=== PATIENT | male | born 1990 | race African-American/Black ===

== ENCOUNTER 2016-12-19 19:39 | Emergency (ER) | payer BC, OTHER ==
[~2016-12-19] VITALS: Ht 172.7 cm; Wt 105.2 kg
[~2016-12-19 19:39] MED LIST: CIPR500T94 PO
[2016-12-19 20:12] VITALS: BP 134/71
[2016-12-19] MEDS ORDERED: CYCL10TA2 PO (20:22)
--- NOTE | 2016-12-19 20:22 | PHYS DOC ---
Past Medical History Past Medical History: Other Additional Past Medical Histor: PTSD Past Surgical History: No Surgical History Alcohol Use: Rarely Drug Use: Marijuana Adult General Chief Complaint Chief Complaint: BACK PAIN - NO INJURY [facility] HPI Patient is a 26 year old nail presents emergency department stating that he's been having upper back to neck pain and discomfort since Monday morning. He denies any injury or trauma. 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 He states that he was fine night and when he woke up Monday he was having back pain and discomfort. Patient states that he has tried Aleve ibuprofen, BenGay, icy hot with no relief. Patient denies any numbness or tingling down to his lower extremities. Review of Systems Review of Systems Constitutional: Denies fever or chills [] Eyes: Denies change in visual acuity, redness, or eye pain [] HENT: Denies nasal congestion or sore throat [] Respiratory: Denies cough or shortness of breath [] Cardiovascular: No additional information not addressed in HPI [] GI: Denies abdominal pain, nausea, vomiting, bloody stools or diarrhea [] : Denies dysuria or hematuria [] Musculoskeletal: back pain denies joint pain [] Integument: Denies rash or skin lesions [] Neurologic: Denies headache, focal weakness or sensory changes [] Endocrine: Denies polyuria or polydipsia [] Allergies Allergies Allergies Coded Allergies Type Severity Reaction Last Updated Verified No Known Drug Allergies 03/05/16 No Physical Exam Physical Exam Constitutional: Well developed, well nourished, no acute distress, non-toxic appearance. [] HENT: Normocephalic, atraumatic, bilateral external ears normal, oropharynx moist, no oral exudates, nose normal. [] Eyes: PERRLA, EOMI, conjunctiva normal, no discharge. [] Neck: Normal range of motion, no tenderness, supple, no stridor. [] Cardiovascular:Heart rate regular rhythm, no murmur [] Lungs & Thorax: Bilateral breath sounds clear to auscultation [] Skin: Warm, dry, no erythema, no rash. [] Back: No thoracic spine tenderness, no crepitus no deformities no step-offs noted. Patient did have tenderness on the paraspinal areas. Extremities: No tenderness, no cyanosis, no clubbing, ROM intact, no edema. [] Neurologic: Alert and oriented X 3, normal motor function, normal sensory function, no focal deficits noted. [] Psychologic: Affect normal, judgement normal, mood normal. [] Current Patient Data Vital Signs Vital Signs Date Time Temp Pulse Resp B/P (MAP) Pulse Ox O2 Delivery O2 Flow Rate FiO2 12/19/16 20:12 98.2 73 18 99 Room Air 98.2 EKG EKG [] Radiology/Procedures Radiology/Procedures [] Course & Med Decision Making Course & Med Decision Making Pertinent Labs and Imaging studies reviewed. (See chart for details) Patient will be provided with discharge instructions, treatment regimens and follow-up recommendations for back strain and discomfort. Patient will be provided with Flexeril which she was provided information will cause drowsiness do not take if he needs to be alert and oriented. He'll be provided with a work note off for the 3 days. Patient was also encouraged to use ibuprofen 800 mg every 8 hours to help with inflammation. Patient will be discharged home in stable condition signs and symptoms to return back to emergency department as been provided. [] Dragon Disclaimer Dragon Disclaimer This electronic medical record was generated, in whole or in part, using a voice recognition dictation system. Departure Departure Impression: Primary Impression: Back strain Disposition: 01 HOME, SELF-CARE Condition: STABLE Referrals: NO PCP (PCP) Patient Instructions: Back Pain, Adult, [id number] Additional Instructions: Activity as tolerated. Medications as prescribed. Flexeril will cause drowsiness do not take if you need to be alert and oriented. Ibuprofen 800 mg every 8 hours with food stop taking few develop an upset stomach. Ice packs on 20 minutes off 20 minutes several times today. Follow-up through primary care physician in the next 7-10 days. Return back to emergency prior signs and symptoms of become worse. Scripts Cyclobenzaprine Hcl (CYCLOBENZAPRINE HCL) 10 Mg Tablet 10 MG PO TID, #30 TAB Prov: OZZY ANNE APRN 12/19/16 OZZY ANNE APRN Dec 19, 2016 20:22
== END 2016-12-19 20:30 | disposition home or self-care (01) ==
LOC: ER 19:39
DX: S29.012A Strain of muscle and tendon of back wall of thorax, initial encounter (principal); M54.2 Cervicalgia; F43.10 Post-traumatic stress disorder, unspecified; F12.10 Cannabis abuse, uncomplicated; X58.XXXA Exposure to other specified factors, initial encounter; Y93.89 Activity, other specified; Y99.8 Other external cause status; Y92.89 Other specified places as the place of occurrence of the external cause
CPT/HCPCS: 99283

== ENCOUNTER 2017-07-05 16:38 | Emergency (ER) | payer SELFPAY | END 2017-07-05 17:35 | disposition home or self-care (01) | LOC: ER 16:38 | DX: K08.89 Other specified disorders of teeth and supporting structures (principal); F43.10 Post-traumatic stress disorder, unspecified; F12.10 Cannabis abuse, uncomplicated | CPT/HCPCS: 99283 ==

== ENCOUNTER 2018-10-01 19:53 | Emergency (ER) | payer SELFPAY ==
[~2018-10-01] VITALS: Ht 172.7 cm; Wt 122.5 kg
[~2018-10-01 19:53] MED LIST changes: +AMOX500C PO; +CYCL10TA2 PO; +HYDR-3164 PO
[2018-10-01 20:14] VITALS: BP 157/73
[2018-10-01] MEDS ORDERED: DICL75TA PO (20:44)
[2018-10-01] MEDS ORDERED: METH-37 PO (20:44)
--- NOTE | 2018-10-01 20:44 | PHYS DOC ---
Past Medical History Past Medical History: Other Additional Past Medical Histor: PTSD Past Surgical History: No Surgical History Alcohol Use: Rarely Drug Use: Marijuana Adult General Chief Complaint Chief Complaint: BACK PAIN OR INJURY HPI HPI Patient is a 28 year old M who was pushing a car on Monday and "pulled or tore" something in his lower R back. Pt is ambulatory in to ER with his significant other. He denies bowel or bladder dysfunction or saddle anesthesia. He reports prior "strained back" before but no known significant back problems. Review of Systems Review of Systems Constitutional: Denies fever or chills Respiratory: Denies cough or shortness of breath Cardiovascular: Denies chest pain. GI: Denies abdominal pain, nausea, vomiting, bloody stools or diarrhea : Denies dysuria or hematuria Musculoskeletal: Denies joint pain. Reports back. Integument: Denies rash or skin lesions Neurologic: Denies headache, focal weakness or sensory changes Endocrine: Denies polyuria or polydipsia All other systems were reviewed and found to be within normal limits, except as documented in this note. Current Medications Current Medications Current Medications Medications (Trade) Dose Ordered Sig/Hilda Start Time Stop Time Status Last Admin Dose Admin Dexamethasone Sodium Phosphate (Decadron) 10 mg 1X ONCE 10/01/18 20:45 10/01/18 20:46 DC 10/01/18 20:47 10 MG Ketorolac Tromethamine (Toradol Im) 60 mg 1X ONCE 10/01/18 20:45 10/01/18 20:46 DC 10/01/18 20:47 60 MG Allergies Allergies Allergies Coded Allergies Type Severity Reaction Last Updated Verified No Known Drug Allergies 03/05/16 No Physical Exam Physical Exam Constitutional: Well developed, well nourished, no acute distress, non-toxic appearance. Neck: Normal range of motion, no tenderness, supple, no stridor. Cardiovascular:Heart rate regular rhythm, no murmur Lungs & Thorax: Bilateral breath sounds clear to auscultation Abdomen: Bowel sounds normal, soft, no tenderness, no masses, no pulsatile masses. Skin: Warm, dry, no erythema, no rash. Back: Perispinous tenderness on R side. Pt has no vertebral point tenderness. He has full ROM with tenderness and no signs of cauda equina. Extremities: No tenderness, no cyanosis, no clubbing, ROM intact, no edema. Neurologic: Alert and oriented X 3, normal motor function, normal sensory function, no focal deficits noted. Psychologic: Affect normal, judgement normal, mood normal. Current Patient Data Vital Signs Vital Signs Date Time Temp Pulse Resp B/P (MAP) Pulse Ox O2 Delivery O2 Flow Rate FiO2 10/01/18 20:14 97.7 102 20 157/73 (101) 97 Room Air 97.7 EKG EKG [] Radiology/Procedures Radiology/Procedures [] Course & Med Decision Making Course & Med Decision Making Pertinent Labs and Imaging studies reviewed. (See chart for details) Discussed that plain film imaging could be done but with no midline pain, susp ect that this is more of a muscular injury. Pt in agreement. Discussed that if symptoms do not improve, he may need imaging such as MRI and he should f/u with his PCP for recheck. Dragon Disclaimer Dragon Disclaimer This electronic medical record was generated, in whole or in part, using a voice recognition dictation system. Departure Departure Impression: Primary Impression: Back strain Additional Impression: Sciatica Disposition: 01 HOME, SELF-CARE Condition: IMPROVED Referrals: KIMMY JEFFERY MD (PCP) Patient Instructions: Back Pain, Adult, Sciatica, [id number] Additional Instructions: Heating pad recommended to low back, if pain persists, you may require imaging. Follow up with your doctor or with orthopedics for further care. Scripts Diclofenac Sodium (DICLOFENAC SODIUM) 75 Mg Tablet. 1 TAB PO BID PRN for PAIN, #20 TAB 1 Refill Prov: JOHN SWENSON 10/01/18 Methocarbamol (ROBAXIN) 500 Mg Tablet 1 TAB PO BID PRN for MUSCLE PAIN, #20 TAB Prov: JOHN SWENSON 10/01/18 Problem Qualifiers JOHN SWENSON October 01, 2018 20:44
[2018-10-01] MEDS ORDERED: KETOROLAC 60 MG/2 ML VIAL. IM ONE (20:45)
[2018-10-01] MEDS ORDERED: DEXAMETHASONE SOD PHOS 20 MG/5 ML VIAL. IM ONE (20:45)
== END 2018-10-01 21:12 | disposition home or self-care (01) ==
LOC: ER 19:53
DX: S39.012A Strain of muscle, fascia and tendon of lower back, initial encounter (principal); M54.41 Lumbago with sciatica, right side; X50.9XXA Other and unspecified overexertion or strenuous movements or postures, initial encounter; Y93.89 Activity, other specified; Y92.89 Other specified places as the place of occurrence of the external cause; Y99.8 Other external cause status
CPT/HCPCS: 96372; 99284; J1100; J1885

== ENCOUNTER 2018-11-17 05:35 | Emergency (ER) | payer SELFPAY ==
[~2018-11-17] VITALS: Ht 172.7 cm; Wt 115.7 kg
[~2018-11-17 05:35] MED LIST changes: +DICL75TA PO; +METH-37 PO
--- NOTE | 2018-11-17 06:13 | PHYS DOC ---
Past Medical History Past Medical History: Other Additional Past Medical Histor: PTSD Past Surgical History: No Surgical History Additional Information: Nonsmoker Alcohol Use: Rarely Drug Use: Marijuana Adult General Chief Complaint Chief Complaint: KNEE INJURY HPI HPI Patient is a 28-year-old male who presents with right knee pain. Yesterday he has played basketball when his right knee twisted and reportedly "popped". Ever since the injury he has had constant, sharp pain on the medial and lateral aspect of his right knee that shoots down the back of his calf. He has used ibuprofen and ice and elevation that this helped with some pain. He rates the pain as a 9/10 currently. Reports some swelling. Denies other injury. Denies numbness or tingling. Review of Systems Review of Systems Constitutional: Denies fever or chills Eyes: Denies redness or eye pain HENT: Denies nasal congestion or sore throat Respiratory: Denies cough or shortness of breath Cardiovascular: Denies chest pain or palpitations GI: Denies abdominal pain, nausea, or vomiting : Denies dysuria or hematuria Musculoskeletal: Denies back pain, reports right knee joint pain Integument: Denies rash or skin lesions Neurologic: Denies headache, focal weakness or sensory changes Complete systems were reviewed and found to be within normal limits, except as documented in this note. Current Medications Current Medications Current Medications Medications (Trade) Dose Ordered Sig/Hilda Start Time Stop Time Status Last Admin Dose Admin Ketorolac Tromethamine (Toradol 30mg Vial) 30 mg 1X ONCE 11/17/18 06:30 11/17/18 06:31 DC 11/17/18 06:36 30 MG Allergies Allergies Allergies Coded Allergies Type Severity Reaction Last Updated Verified No Known Drug Allergies 03/05/16 No Physical Exam Physical Exam Constitutional: Well developed, well nourished, no acute distress, non-toxic appearance HENT: Normocephalic, atraumatic, oropharynx moist Eyes: Conjunctiva normal, no discharge Neck: Normal range of motion, no tenderness, supple Cardiovascular: CR < 2 sec, PT to right ankle +2 Lungs & Thorax: No respiratory distress, no trauma Skin: Warm, dry, no erythema, no rash Extremities: No deformity, reduced flexion in right knee, mild edema below right patella. No patellar laxity or pain, joint is stable, negative ante rior/posterior drawer test, mild pain to valgus and varus strain but no laxity, negative Marija's test. Neurologic: Alert and oriented X 3, normal motor function, normal sensory function, no focal deficits noted Psychologic: Affect normal, judgement normal, mood normal Current Patient Data Vital Signs Vital Signs Date Time Temp Pulse Resp B/P (MAP) Pulse Ox O2 Delivery O2 Flow Rate FiO2 11/17/18 08:18 88 16 130/84 (99) 98 Room Air 11/17/18 05:37 98.0 98.0 EKG EKG [] Radiology/Procedures Radiology/Procedures PROCEDURE: KNEE RIGHT 3V KNEE RIGHT 3V History: Right knee pain began while playing basketball Comparison: None. Findings: 3 views of the right knee are submitted. No acute fracture or dislocation is identified. There is probable small suprapatellar joint effusion. Impression: 1. No acute osseous abnormality is identified by radiographs. There is probable small suprapatellar joint effusion. Electronically signed by: Jordi Monreal MD (11/17/2018 7:40 AM) [facility] Course & Med Decision Making Course & Med Decision Making Pertinent Imaging studies reviewed. (See chart for details) Mr. Lora is a 28-year-old male who presents with acute onset of right knee pain. 2 days ago he was playing basketball when his right knee medial and he felt a popping sensation. He has had sharp, constant pain on the medial and lat eral aspect of his right knee that shoots down the back of his calf. His tried a wrap, elevation, ibuprofen, and ice with only mild improvement. On physical exam the joint is stable with reduced flexion. X-ray is obtained to check for acute process. Crutches and leatha bandage provided. Patient stable for discharge with outpatient follow-up with PCP/orthopedics. Orthopedic referral provided. Discussed findings and plan with patient and family, who acknowledge understanding and agreement. Dragon Disclaimer Dragon Disclaimer This electronic medical record was generated, in whole or in part, using a voice recognition dictation system. Splinting Splinting : Location: Right knee Pre-Made Type: LEATHA bandage Pre-Proc Neuro Vasc Exam: normal Post-Proc Neuro Vasc Exam: normal, unchanged from pre-exam Departure Departure Impression: Primary Impression: Knee pain Disposition: 01 HOME, SELF-CARE Condition: STABLE Referrals: KIMMY JEFFERY MD (PCP) IRISH MENON II, MD Patient Instructions: Crutch Use, [id number], Knee Pain, [id number] Additional Instructions: Take over the counter ibuprofen or naproxen for pain or discomfort. Problem Qualifiers Primary Impression: Knee pain Chronicity: acute Laterality: right Qualified Codes: M25.561 - Pain in right knee KIMMY ARNETT DO Nov 17, 2018 06:13
[2018-11-17] MEDS ORDERED: KETOROLAC 30 MG/ML VIAL. IM ONE (06:30)
--- NOTE | 2018-11-17 07:43 | RAD ---
KNEE RIGHT 3V History: Right knee pain began while playing basketball Comparison: None. Findings: 3 views of the right knee are submitted. No acute fracture or dislocation is identified. There is probable small suprapatellar joint effusion. Impression: 1. No acute osseous abnormality is identified by radiographs. There is probable small suprapatellar joint effusion. Electronically signed by: Jordi Monreal MD (11/17/2018 7:40 AM) [facility]
[2018-11-17 08:18] VITALS: BP 130/84
== END 2018-11-17 08:29 | disposition home or self-care (01) ==
LOC: ER 05:35
DX: M25.561 Pain in right knee (principal)
CPT/HCPCS: 73562; 96372; 99284; J1885

== ENCOUNTER 2019-02-08 14:37 | Emergency (ER) | payer OTHER ==
[~2019-02-08] VITALS: Ht 172.7 cm; Wt 113.4 kg
[2019-02-08 14:40] VITALS: BP 156/92
[2019-02-08] MEDS ORDERED: HYDR-3164 PO (15:31)
[2019-02-08] MEDS ORDERED: METH4TAB2 PO (15:31)
[2019-02-08] MEDS ORDERED: DICL50TA2 PO (15:31)
--- NOTE | 2019-02-08 15:31 | PHYS DOC ---
Past Medical History Past Medical History: No Pertinent History, Other Additional Past Medical Histor: PTSD Past Surgical History: No Surgical History Alcohol Use: Rarely Drug Use: Marijuana Adult General Chief Complaint Chief Complaint: PAIN CONTROL HPI HPI Patient is a 28 year old male with no significant medical history who presents to the ED today complaining of a sharp intermittent 8 out of 10 right knee pain specifically in the posterior and lateral aspect that has been going on since November 15, 2018 after an injury. Patient states he was seen in the ED that day, he states he had negative x-rays and was discharged to follow-up with an orthopedic doctor. He states he has an appointment on February 21, 2019. Patient states the pain has increasingly gotten worse today, he states he works for the [employer] and ambulation made the pain worse. He is requesting something for pain. Denies anything specifically alleviating the pain. He states his been trying [id number] remedies but today they are not touching the pain. Review of Systems Review of Systems Constitutional: Denies fever or chills [] Musculoskeletal: Reports right knee pain Integument: Denies rash or skin lesions [] Neurologic: Denies headache, focal weakness or sensory changes [] All other systems were reviewed and found to be within normal limits, except as documented in this note. Allergies Allergies Allergies Coded Allergies Type Severity Reaction Last Updated Verified No Known Drug Allergies 03/05/16 No Physical Exam Physical Exam Constitutional: Well developed, well nourished, no acute distress, non-toxic appearance. [] Skin: Warm, dry, no erythema, no rash. [] Back: No tenderness, no CVA tenderness. [] Extremities: Right knee with no obvious deformity, small amount of soft tissue swelling noted over the anterior aspect of the knee. Full range of motion to the right knee. Negative Mahi sign, negative Daron sign, negative anterior- posterior drawer sign. +2 right pedal pulse. Cap refill less than 2 seconds to the right lower extremity, sensation intact. Neurologic: Alert and oriented X 3, normal motor function, normal sensory function, no focal deficits noted. [] Psychologic: Affect normal, judgement normal, mood normal. [] Current Patient Data Vital Signs Vital Signs Date Time Temp Pulse Resp B/P (MAP) Pulse Ox O2 Delivery O2 Flow Rate FiO2 02/08/19 14:40 98.5 83 16 156/92 (113) 98 Room Air 98.5 EKG EKG [] Radiology/Procedures Radiology/Procedures [] Course & Med Decision Making Course & Med Decision Making Pertinent Labs and Imaging studies reviewed. (See chart for details) This is a 28-year-old male patient presented to the ED today with exacerbation of right knee pain, no known injury. Patient also needing a note for work. Has an appointment with Ortho on February 25, 2019. Patient was provided with a note for work and pain medication to use until then. Ice elevation encouraged. Dragon Disclaimer Dragon Disclaimer This electronic medical record was generated, in whole or in part, using a voice recognition dictation system. Departure Departure Impression: Primary Impression: Right knee pain Disposition: HOME, SELF-CARE Condition: STABLE Referrals: NO PCP (PCP) follow up as scheduled Patient Instructions: Knee Pain, [id number] Additional Instructions: Take the prescribed medications as ordered. Try to ice and elevate the extremity. If you have a knee brace all an Salvador bandage use it on the knee. Follow-up with orthopedic doctor as scheduled. Scripts Diclofenac Potassium (DICLOFENAC POTASSIUM) 50 Mg Tablet 1 TAB PO BID, #20 TAB 1 Refill Prov: BONGYAN OQUENDO AUDRA 02/08/19 Hydrocodone/Apap 5-325 (NORCO 5-325 TABLET) 1 Each Tablet 1 TAB PO Q6HRS, #12 TAB Prov: YAN MILLER APRN 02/08/19 Methylprednisolone (MEDROL) 4 Mg Tab.ds.pk 1 PKG PO UD, #1 PKG Prov: BONGJUANITAYAN Ly APRN 02/08/19 Problem Qualifiers Primary Impression: Right knee pain Chronicity: acute Qualified Codes: M25.561 - Pain in right knee YAN MILLER AUDRA Feb 08, 2019 15:31
== END 2019-02-08 15:34 | disposition home or self-care (01) ==
LOC: ER 14:37
DX: M25.561 Pain in right knee (principal)
CPT/HCPCS: 99283

== ENCOUNTER 2019-02-23 11:06 | Emergency (ER) | payer OTHER ==
[~2019-02-23] VITALS: Ht 172.7 cm; Wt 113.4 kg
[~2019-02-23 11:06] MED LIST changes: +DICL50TA2 PO; +METH4TAB2 PO
[2019-02-23 11:15] VITALS: BP 170/75
[2019-02-23] MEDS ORDERED: METH4TAB2 PO (11:29)
[2019-02-23] MEDS ORDERED: DICL50TA2 PO (11:29)
--- NOTE | 2019-02-23 11:30 | PHYS DOC ---
Past Medical History Past Medical History: No Pertinent History, Other Additional Past Medical Histor: PTSD (YAN MILLER APRN) Past Surgical History: No Surgical History (YAN MILLER APRN) Alcohol Use: Rarely Drug Use: Marijuana (YAN MILLER APRN) Attending Signature I have participated in the care of this patient and I have reviewed and agree with all pertinent clinical information above including history, exam, and recommendations. (NATE GALVAN MD) Adult General Chief Complaint Chief Complaint: KNEE SWELLING HPI HPI Patient is a 28 year old male with no significant medical history who presents today complaining of sharp intermittent 9 out of 10 right knee pain that he states is chronic since November 15, 2018 after an injury and got exacerbated yesterday while working at the [employer]. Patient states he had a pop sound from the right knee. He states is able to ambulate on it. Patient states he has some swelling in the need to. Patient states the pain is worse when ambulating and is requesting a note for work for a couple days. He states he has an appointment with orthopedic doctor on Monday, 25 February 2019. Patient states compression/splinting is helping with the pain (YAN MILLER APRN) Review of Systems Review of Systems Constitutional: Denies fever or chills [] Musculoskeletal: Reports right knee pain Integument: Denies rash or skin lesions [] Neurologic: Denies headache, focal weakness or sensory changes [] All other systems were reviewed and found to be within normal limits, except as documented in this note. (YAN MILLER APRN) Allergies Allergies Allergies Coded Allergies Type Severity Reaction Last Updated Verified No Known Drug Allergies 03/05/16 No (NATE GALVAN MD) Physical Exam Physical Exam Constitutional: Well developed, well nourished, no acute distress, non-toxic appearance. [] Skin: Warm, dry, no erythema, no rash. [] Back: No tenderness, no CVA tenderness. [] Extremities: Right knee with no obvious deformity, trace amount of soft tissue swelling noted on the right anterior knee. No redness to the knee. No warmth, full range of motion to the right knee, negative Mahi sign, negative Daron sign, negative anterior-posterior drawer sign. +2 right pedal pulse. Cap refill less than 2 seconds the right lower extremity Neurologic: Alert and oriented X 3, normal motor function, normal sensory function, no focal deficits noted. [] Psychologic: Affect normal, judgement normal, mood normal. [] (YAN MILLER APRN) Current Patient Data Vital Signs Vital Signs Date Time Temp Pulse Resp B/P (MAP) Pulse Ox O2 Delivery O2 Flow Rate FiO2 02/23/19 11:15 98.6 82 14 170/75 (106) 97 Room Air 98.6 (NATE GALVAN MD) EKG EKG [] (YAN MILLER APRN) Radiology/Procedures Radiology/Procedures [] (YAN MILLER APRN) Course & Med Decision Making Course & Med Decision Making Pertinent Labs and Imaging studies reviewed. (See chart for details) This is a 28-year-old male patient presenting to the ED today with right knee pain that is chronic in nature but got exacerbated yesterday while working. He states he is an appointment with the orthopedic doctor on February 25, 2019 which is one day away and does not want any imaging. He is requesting a note for work which was provided. He has a splint for the knee. Ice elevation encouraged. Prescription for Medrol Dosepak and diclofenac provided. (YAN MILLER APRN) Dragon Disclaimer Dragon Disclaimer This electronic medical record was generated, in whole or in part, using a voice recognition dictation system. (YAN MILLER APRN) Departure Departure Impression: Primary Impression: Right knee pain Disposition: HOME, SELF-CARE Condition: STABLE Referrals: NO PCP (PCP) Patient Instructions: Knee Pain, [id number] Additional Instructions: You were evaluated for knee pain, continue using the knee splint you have. Try to ice and elevate the extremity. Take the prescribed medications as ordered, follow-up with orthopedic doctor on Monday as scheduled Scripts Methylprednisolone (MEDROL) 4 Mg Tab.ds.pk 1 PKG PO UD, #1 PKG Prov: YAN MILLER APRN 02/23/19 Diclofenac Potassium (DICLOFENAC POTASSIUM) 50 Mg Tablet 1 TAB PO BID, #20 TAB Prov: YAN MILLER APRN 02/23/19 Problem Qualifiers Primary Impression: Right knee pain Chronicity: acute Qualified Codes: M25.561 - Pain in right knee YAN MILLER APRN Feb 23, 2019 11:29 NATE GALVAN MD Feb 24, 2019 06:08
== END 2019-02-23 11:33 | disposition home or self-care (01) ==
LOC: ER 11:06
DX: M25.561 Pain in right knee (principal); G89.29 Other chronic pain
CPT/HCPCS: 99283

== ENCOUNTER 2020-07-19 17:39 | Emergency (ER) | payer OTHER ==
[~2020-07-19] VITALS: Ht 170.2 cm; Wt 114.0 kg
[2020-07-19 17:50] VITALS: BP 178/82
[2020-07-19] MEDS ORDERED: NAPROXEN 500 MG TABLET PO STA (17:58)
[2020-07-19] MEDS ORDERED: HYDROcodone/APAP 5/325MG 1 TAB TABLET PO ONE (18:00)
[2020-07-19] MEDS ORDERED: predniSONE 10 MG TABLET PO ONE (18:00)
[2020-07-19] MEDS ORDERED: CYCLOBENZAPRINE 10 MG TABLET. PO ONE (18:00)
[2020-07-19] MEDS ORDERED: CYCL10TA2 PO (18:13)
[2020-07-19] MEDS ORDERED: METH4TAB2 PO (18:13)
[2020-07-19] MEDS ORDERED: HYDR-2761 PO (18:13)
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
== END 2020-07-19 18:44 | disposition home or self-care (01) ==
LOC: ER 17:39
DX: G89.11 Acute pain due to trauma (principal); M25.511 Pain in right shoulder; M25.512 Pain in left shoulder; Z87.891 Personal history of nicotine dependence; V98.8XXD Other specified transport accidents, subsequent encounter
CPT/HCPCS: 99284; J7512